=== PATIENT | female | born 1945 | race African-American/Black ===

== ENCOUNTER → 2020-02-24 | Outpatient (CLI) | payer MEDICARE, OTHER ==
--- NOTE | 2020-02-24 12:38 | KCIC ---
Bilateral digital screening mammograms with 3-D tomosynthesis: Reason for examination: Routine screening. Comparison is made to previous studies dated back to 09/04/2015. Bilateral mammograms in CC and oblique projections were obtained with 2-D imaging and 3-D tomosynthesis imaging on a Siemens Inspiration unit and reviewed on the workstation. Interpretation was made with the benefit of CAD. The skin and nipples show no abnormalities. No abnormal axillary lymph nodes are seen. The breast parenchyma shows scattered fatty and fibroglandular density. (Breast density: Category B.) There continues to be architectural distortion at the posterior 12:00 position of the right breast correspond to previous excisional biopsy. There are no new dominant masses, suspicious calcifications or architectural distortion. Calcifications seen in the left breast appear to be stable. Impression: Postop changes in the right breast. No evidence of malignancy. Recommend routine screening. BI-RAD Category 2: Benign. "Our facility is accredited by the [employer] Mammography Program." This patient's information has been entered into a reminder system for the patient to be notified with the results of her examination and a target date for the next mammogram. Electronically signed by: Diane Bryan MD (02/24/2020 12:36 PM) [id number]
== END ==
LOC: KCIC MAMMO 08:41
PROVIDERS: ATTEND Family Medicine
DX: Z12.31 Encounter for screening mammogram for malignant neoplasm of breast (principal); N64.89 Other specified disorders of breast; Z90.11 Acquired absence of right breast and nipple
CPT/HCPCS: 77063; 77067

== ENCOUNTER → 2021-06-27 | Outpatient (CLI) | payer MEDICARE, OTHER ==
[~2021-06-27] MED LIST: IOHEXOL 240 MG/ML 50ML VIAL. PO ONE; IOHEXOL 300 MG/ML 100ML VIAL. IV ONE
--- NOTE | 2021-06-27 14:56 | KCIC ---
EXAM: DUAL ENERGY X-RAY ABSORPTIOMETRY (DEXA). HISTORY: Postmenopausal screening. FINDINGS: The lowest measured T-score is -1.7 in the left hip, based on a bone mineral density of 0.7 35 g/cm^2. Refer to the worksheets for full detail. No comparison examinations are available. IMPRESSION: 1. Low bone mass. Bone mineral density yields a T-score between -1.0 and -2.5. Fracture risk is incre ased. 2. FRAX report: Not calculated. METHODOLOGY: Dual energy x-ray absorptiometry was performed to measure bone mineral density. The foll owing analysis is based on the 2019 Official Positions of the International Society for Clinical Dens itometry: Measurements of the hips and the average of L1-L4 are preferred. When the spine and/or hip cannot be feasibly measured or interpreted, or in the setting of hyperparathyroidism, distal radial bone minera l density may be measured. The lumbar spine T-score is based on the average bone mineral density of L1-L4. In the setting of art ifact or anatomic abnormality, some lumbar levels may be excluded, and the remaining levels used for calculation. A single lumbar level is not used for diagnosis, and if only a single level is available for assessment, another anatomic site will be used to assign a diagnosis. The hip T-score is based on the bone mineral density measurement of the femoral neck or total proxima l femur of either side, whichever is lowest. Bilateral mean values are not used for diagnosis. The forearm T-score is derived from 33% of the distal radius of the nondominant forearm. Electronically signed by: Lashon Martinez MD (06/27/2021 2:54 PM) [id number]
--- NOTE | 2021-06-27 16:48 | KCIC ---
EXAMINATION: CT abdomen and pelvis with IV contrast. INDICATION:75 years, Female, abdominal pain. TECHNIQUE: Axial CT images of the abdomen and pelvis were obtained. Coronal and sagittal reformatted performed. COMPARISON: None. Exposure: One or more of the following individualized dose reduction techniques were utilized for thi s examination: 1. Automated exposure control 2. Adjustment of the mA and/or kV according to patient size 3. Use of iterative reconstruction technique. FINDINGS: LOWER CHEST: Unremarkable. ABDOMEN/PELVIS: Normal size and morphology of the liver with homogeneous enhancement. No suspicious focal hepatic les ion. Calcified granulomas in the liver and spleen. No splenomegaly. Cholecystectomy. Dilated central intrahepatic and extrahepatic biliary ducts with smooth tapering distally, likely secondary to post c holecystectomy status. Unremarkable pancreas. No adrenal nodule. No hydronephrosis in either kidney. Multiple simple appearing bilateral renal cysts, the largest in the superior pole right kidney measur es 5.4 x 4.5 cm. Subcentimeter hypodensities in both renal cortices, too small to characterize. Post Shade-en-Y gastric bypass changes. Small hiatal hernia. No bowel dilation. Mild aortoiliac athero sclerotic calcifications without narrowing or dilation. Mesenteric arteries and portal vein are paten t. No lymphadenopathy in the abdomen or pelvis by size criteria. No pneumoperitoneum or ascites. Urin vera bladder is decompressed which limits evaluation. Hysterectomy changes. No suspicious pelvic rashaun s. MUSCULOSKELETAL STRUCTURES: No acute osseous process or suspicious lesion. Multilevel degenerative changes in the spine. IMPRESSION: 1. No acute intra-abdominal findings. 2. Post Shade-en-Y gastric bypass changes. Small hiatal hernia. 3. Multiple simple appearing bilateral renal cysts. 4. Other chronic/incidental findings, as described above. Electronically signed by: Arely Escalera MD (06/27/2021 4:46 PM) [facility]
== END ==
LOC: KCIC CT 13:31
PROVIDERS: ATTEND Family Medicine
DX: K44.9 Diaphragmatic hernia without obstruction or gangrene (principal); N28.1 Cyst of kidney, acquired; K75.3 Granulomatous hepatitis, not elsewhere classified; D73.89 Other diseases of spleen; M85.88 Other specified disorders of bone density and structure, other site; M47.819 Spondylosis without myelopathy or radiculopathy, site unspecified; Z78.0 Asymptomatic menopausal state; Z90.49 Acquired absence of other specified parts of digestive tract; Z90.710 Acquired absence of both cervix and uterus
CPT/HCPCS: 74177; 77080; 82565; Q9966; Q9967